=== PATIENT | female | born 1995 | race African-American/Black ===

== ENCOUNTER 2019-07-10 19:51 | Emergency (ER) | payer OTHER ==
[~2019-07-10] VITALS: Ht 162.6 cm; Wt 49.9 kg
--- NOTE | 2019-07-10 20:20 | NUR ---
ED Nurse Note: Recieved report from am nurse to resume care, pt in bed awake and alert, oriented x 4, here from [place] with c/o increased anxiety with chest pain and stress, pt has hx of panic attacks and states it is that again, pt states having intermittent chest pain at 5/10, no sob or labored breathing, pt is tearing eyes and does not want to disclose why, deneis SI or HI or any other discomforts.
[2019-07-10 21:35] VITALS: BP 109/74
--- NOTE | 2019-07-10 21:35 | Emergency Room Report ---
History of Present Illness General Chief Complaint: Chest Pain Present Illness HPI 23-year-old female with history of anxiety currently taking Klonopin 3 times a week as been prescribed by primary doctor under the care of therapist here complaining of sudden onset of chest pain after eating dinner prior to arrival. Denies any spicy or acidic food intake. Denies tobacco smoke, drug use, alcohol intake. Is sitting comfortably with stable vital signs. Denies any fever and chills, cough and congestion, recent travel. Denies drug use. Denies at this time. Denies SI and HI. COVID-19 risk:Travel to affect: No Allergies: Coded Allergies: No Known Allergies (Unverified , 07/10/19) Patient History Past Medical History: see triage record, CVA/TIA Past Surgical History: none Pertinent Family History: none Last Menstrual Period: 06/2019 Now: No Immunizations: UTD Reviewed Nursing Documentation: PMH: Agreed; PSxH: Agreed Review of Systems All Other Systems: negative except mentioned in HPI Physical Exam Vital Signs Date Time Temp Pulse Resp B/P (MAP) Pulse Ox O2 Delivery O2 Flow Rate FiO2 07/10/19 20:02 98.2 87 16 117/78 (91) 96 Room Air Sp02 EP Interpretation: reviewed, normal General Appearance: no apparent distress, alert, GCS 15, non-toxic Head: normocephalic, atraumatic ENT: hearing grossly normal, normal pharynx, no angioedema, normal voice Neck: full range of motion, supple, supple/symm/no masses Respiratory: chest non-tender, lungs clear, normal breath sounds, no rhonchi, no retraction, no wheezing, speaking full sentences Cardiovascular #1: regular rate, rhythm, no edema, no murmur Gastrointestinal: normal bowel sounds, non tender, soft, non-distended, no guarding, no rebound Genitourinary: no CVA tenderness Musculoskeletal: back normal Neurologic: alert, motor strength/tone normal, oriented x3, sensory intact, responsive, speech normal Psychiatric: judgement/insight normal, memory normal, mood/affect normal, no suicidal/homicidal ideation Skin: no rash Lymphatic: no adenopathy Medical Decision Making PA Attestation All my diagnosis and treatment plans were reviewed ad discussed with my supervising physician Dr. Mckeon Diagnostic Impression: Primary Impression: Chest pain Additional Impression: Anxiety ER Course 23-year-old female with history of anxiety currently taking Klonopin 3 times a week as been prescribed by primary doctor under the care of therapist here complaining of sudden onset of chest pain after eating dinner prior to arrival. Denies any spicy or acidic food intake. Denies tobacco smoke, drug use, alcohol intake. Is sitting comfortably with stable vital signs. Denies any fever and chills, cough and congestion, recent travel. Denies drug use. Denies at this time. Denies SI and HI. Ddx considered but are not limited to: [place], Angina, COPD, GERD, anxiety Vital signs: are WNL, pt. is afebrile H&PE are most consistent with unspecified chest pain most likely secondary to anxiety ORDERS: EKG, Chest XR, urine tox screen, urine , no further imaging or testing needed due to young age of the patient and otherwise asymptomatic ED INTERVENTIONS: None required at this time. DISCHARGE: At this time pt. is stable for d/c to home. Will provide printed patient care instructions, and any necessary prescriptions. Care plan and follow up instructions have been discussed with the patient prior to discharge. Also referral to livestock dealer for primary care. EKG Diagnostic Results Rate: normal Rhythm: NSR ST Segments: no acute changes Other Impression No acute ST changes. Chest X-Ray Diagnostic Results Chest X-Ray Diagnostic Results : Chest X-Ray Ordered: Yes # of Views/Limited/Complete: 1 View Indication: Chest Pain EP Interpretation: Yes CHRISTOPH Xray: Interpretation reviewed, by supervising MD, and agrees with findings. Interpretation: no consolidation, no effusion, no pneumothorax Impression: No acute disease Electronically Signed by: Echo Mcpherson PA-C Last Vital Signs Date Time Temp Pulse Resp B/P (MAP) Pulse Ox O2 Delivery O2 Flow Rate FiO2 07/10/19 20:02 98.2 87 16 117/78 (91) 96 Room Air Disposition: HOME, SELF-CARE Condition: Stable Patient Instructions: Generalized Anxiety Disorder, Nonspecific Chest Pain Additional Instructions: You are already on benzodiazepines for your anxiety, no more can be given to you at this time, you need to follow-up with your regular doctor for referral to psychiatrist for better management of anxiety, possible SSRI or SNRI to be prescribed. If worsening symptoms return to the emergency room. Echo Santos Jul 10, 2019 21:35
[2019-07-10 21:45] VITALS: BP 109/74
--- NOTE | 2019-07-10 21:45 | NUR ---
ER DISCHARGE NOTE: Patient is cleared to be discharged per ERMD, pt is aox4, on room air, with stable vital signs. pt was given dc instructions, pt was able to verbalize understanding, pt id band removed without complications. pt is able to ambulate with steady gait. pt took all belongings.
--- NOTE | 2019-07-11 08:32 | Diagnostic Imaging Report ---
Indication: Chest pain Technique: One view of the chest Comparison: none Findings: Lungs and pleural spaces are clear. Heart size is normal. Impression: No acute process
== END 2019-07-10 21:45 | disposition home or self-care (01) ==
LOC: EMR 21:45
DX: R07.9 Chest pain, unspecified (principal); F41.9 Anxiety disorder, unspecified; Z86.73 Personal history of transient ischemic attack (TIA), and cerebral infarction without residual deficits
CPT/HCPCS: 71045; 80307; 81025; 93005; 99283